=== PATIENT | male | born 1980 | race Caucasian/White ===

== ENCOUNTER 2024-03-26 13:39 | Emergency (ER) | payer OTHER, SELFPAY ==
[2024-03-26 14:04] VITALS: BP 128/79; PULSE 58; RESP 14; TEMP 36.4; O2SAT 99; BMI 21.2
--- NOTE | 2024-03-26 14:29 | DI.US.S_ITS ---
PROCEDURE: US ABDOMEN LIMITED INDICATIONS: RLQ pain TECHNIQUE: Real-time focused scanning was performed of the abdomen with attention to the appendix, with image documentation. COMPARISON: None. FINDINGS: Appendix visualization: There is a blind-ending small tubular structure within the right lower quadrant which may represent the appendix measuring up to 0.7 cm in diameter. Appendix measurements: 0.7 cm diameter Associated findings: Echogenic fat: Negative. Appendiceal compressibility: Not applicable. Appendicoliths: Positive. Nearby free fluid: Negative. Lymphadenopathy: Negative. IMPRESSION: Small appendicoliths without significant appendiceal dilatation or secondary signs to suggest appendicitis. The appendix measures 0.7 cm diameter. Dictated by: Sunny Jimenez M.D. on 03/26/2024 at 15:58 Approved by: Sunny Jimenez M.D. on 03/26/2024 at 16:02
--- NOTE | 2024-03-26 14:48 | EKG_ITS ---
[address] [address] Test Date: 2024-03-26 Pat Name: Carlos Hammond Department: 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
[2024-03-26 14:55] LABS: Add Manual Diff / Slide Review NO; Basophils Absolute Auto 100 /uL (0-100); Basophils Percent Auto 1.3 % (0-2); Eosinophils Absolute Auto 200 /uL (0-450); Eosinophils Percent Auto 2.3 % (2-4); Hematocrit 43.7 % (41-53); Hemoglobin 14.7 g/dL (13.5-17.5); Lymphocytes Absolute Auto 2500 /uL (1100-4500); Lymphocytes Percent Auto 29.7 % (25-40); Mean Corpuscular HGB Conc 33.6 % (30-36); Mean Corpuscular Hemoglobin 30.9 PG (26-34); Mean Corpuscular Volume 92.1 fL (80-100); Monocytes Absolute Auto 800 /uL (0-900); Monocytes Percent Auto 9.6 % (3-14); Neutrophils Absolute Auto 4700 /uL (1500-7000); Neutrophils Percent Auto 57.1 % (50-75); Platelet Count 233 X10^3/uL (150-400); Red Blood Cell Count 4.75 X10^6/uL (4.5-5.9); Red Cell Distribution Width 13.7 % (11.6-14.8); White Blood Cell Count 8.3 X10^3/uL (4.5-11.0)
[2024-03-26 15:08] LABS: Alanine Aminotransferase 39 IU/L (<50); Albumin 4.5 g/dL (3.5-5.0); Albumin Globulin Ratio 1.7 (1.0-2.8); Alkaline Phosphatase 56 U/L (38-126); Aspartate Aminotransferase 35 IU/L (17-59); Bilirubin Total 0.7 mg/dL (0.2-1.3); Blood Urea Nitrogen 15 mg/dL (9-20); Calcium 9.5 mg/dL (8.4-10.2); Carbon Dioxide 28 mmol/L (22-32); Chloride 105 mmol/L (98-107); Estimated Glomerular Filt Rate > 60 mL/min (>60); Globulin 2.7 g/dL (1.7-4.1); Glucose 100 mg/dL (70-100); HEMOLYSIS < 15 (0-50); Lactate (Lactic Acid) 0.7 mmol/L (0.7-2.1); Lipase 59 U/L (23-300); Potassium 4.4 mmol/L (3.4-5.1); Sodium 138 mmol/L (137-145); Total Protein 7.2 g/dL (6.3-8.2)
[2024-03-26 16:05] LABS: Urine Volume 10mL (spun)
[2024-03-26 16:06] LABS: Bacteria Urine None Seen; Culture Indicated Urine Cult Not Indicated; Mucus Urine 2+ (Negative); RBC Urine None Seen (0-5/HPF); Squamous Epithelial Cell Urine 1-5 /HPF (0-5/HPF); WBC Urine 1-5/HPF (0-5/HPF)
[2024-03-26 16:10] LABS: Procalcitonin 0.032 ng/mL (<0.5)
--- NOTE | 2024-03-26 16:56 | DI.CT.S_ITS ---
PROCEDURE: CT ABDOMEN PELVIS W CON INDICATIONS: RLQ pain TECHNIQUE: After the administration of intravenous contrast, axial sections acquired from the lung bases to the pubic symphysis. Coronal and sagittal reformats were performed. For radiation dose reduction, the following was used: automated exposure control, adjustment of mA and/or kV according to patient size. COMPARISON: None. FINDINGS: Image quality: Diagnostic. Lower Chest: No significant findings. ABDOMEN: Liver: No solid mass. Gallbladder: No radiopaque gallstones or wall thickening. Biliary ducts: No biliary dilation. Pancreas: No ductal dilation. Spleen: Size is within normal limits. Adrenal Glands: No adrenal nodules. Kidneys and Ureters: No hydronephrosis. No solid mass. No complex renal cystic lesion which requires follow up. Stomach and Bowel: Normal colonic caliber, without significant wall thickening. The appendix is at the upper limits of normal in size measuring up to 7 millimeters. Fluid and gas is seen within the appendix. There does appear to be mild inflammation adjacent to the tip of the appendix (2/118). Peritoneum: No abnormal intraperitoneal fluid. No free air. Ventral Wall: No significant ventral hernia. Abdominal Nodes: No retroperitoneal or mesenteric adenopathy by size criteria. Vessels: Aorta and inferior vena cava are normal in size. PELVIS: Pelvic Organs: Unremarkable. Bladder: No bladder wall thickening, accounting for underdistention. Pelvic Nodes: No enlarged lymph nodes. Miscellaneous: No inguinal hernias are seen. Bones: No aggressive osseous abnormality. Focal degenerative changes at L5-S1 with grade 1 anterolisthesis and bilateral pars interarticularis defects. IMPRESSION: Appendix is at the upper limits of normal in size measuring 7 millimeters containing fluid and gas. There does appear to be mild inflammation adjacent to the tip of the appendix. Early or developing tip appendicitis is not excluded. Dictated by: Edd Dumont M.D. on 03/26/2024 at 17:31 Approved by: Edd Dumont M.D. on 03/26/2024 at 17:36
[2024-03-26 18:32] VITALS: BP 145/78; PULSE 85; RESP 16; TEMP 36.7; O2SAT 99
--- NOTE | 2024-03-26 18:34 | ED_ITS ---
HPI - Abdominal Pain General Chief Complaint: Abdominal Pain Stated Complaint: r/o appendicitis, sent by [facility] Time Seen by Provider: 03/26/24 15:09 Source: patient Mode of arrival: Ambulatory History of Present Illness HPI narrative: 43-year-old male with no reported past medical history presents with 4 days of right-sided abdominal pain. Patient states that he had an episode similar to this 1 month ago, but it resolved after a day or so. When his symptoms returned and persisted he became worried that something with his appendix may be wrong. He initially presented to the walk-in clinic, however they referred him to the ER for evaluation. Patient denies fevers, chills, nausea, vomiting, changes in bowel habits. Related Data Previous Rx's Medication Instructions Recorded amoxicillin 875 mg-potassium 1 tab PO Q12H #20 tabs 03/26/24 clavulanate 125 mg tablet Allergies Allergy/AdvReac Type Severity Reaction Status Date / Time No Known Drug Allergies Allergy Verified 03/26/24 18:50 Exam Initial Vital Signs Initial Vital Signs: Vital Signs Temperature 97.6 F 03/26/24 14:04 Pulse Rate 58 L 03/26/24 14:04 Respiratory Rate 14 03/26/24 14:04 Blood Pressure 128/79 03/26/24 14:04 Pulse Oximetry 99 03/26/24 14:04 Oxygen Delivery Method Room Air 03/26/24 14:04 Const: Awake, alert, no acute distress, nontoxic appearing Cardiac: regular rate, regular rhythm RESP: unlabored, speaking in complete sentences without dyspnea GI: Soft, nontender, nondistended, no rebound, no guarding Skin: Warm, Dry, intact, no rashes Neuro: AO x3, CN II-XII grossly intact, moves all extremities Course Orders Ordered: ED Orders 03/26/24 15:41 Urine Microscopic Stat 03/26/24 16:56 CT abdomen pelvis w con Stat Discontinued Medications Piperacillin Sod/Tazobactam (Sod 4.5 gm/ Sodium Chloride) 100 mls @ 200 mls/hr IV NOW ONE Stop: 03/26/24 18:42 Last Infusion: 03/26/24 19:31 Dose: Infused Documented By: Admin: 03/26/24 18:48 Dose: 200 mls/hr Documented By: Ondansetron HCl (Ondansetron 4 Mg/2 Ml Inj) 4 mg IV NOW PRN PRN Reason: Nausea And Vomiting Ondansetron HCl (Ondansetron 4 Mg Odt) 4 mg PO NOW PRN PRN Reason: Nausea And Vomiting Vital Signs Vital signs: Vital Signs - 8 hr 03/26/24 18:32 03/26/24 19:00 Temperature 98.0 F 98.6 F Pulse Rate 85 66 Respiratory Rate 16 16 Blood Pressure 145/78 H 108/78 Pulse Oximetry 99 99 Oxygen Delivery Method Room Air Room Air MDM - Abdominal Pain Differential Diagnosis Differential diagnosis: Likely abdominal pain, acute appendicitis and calculus of kidney Lab Data 03/26/24 14:40 03/26/24 14:40 Labs: Lab Results 03/26/24 03/26/24 Range/Units 14:40 15:41 WBC 8.3 (4.5-11.0) X10^3/uL RBC 4.75 (4.5-5.9) X10^6/uL Hgb 14.7 (13.5-17.5) g/dL Hct 43.7 (41-53) % MCV 92.1 (80-100) fL MCH 30.9 (26-34) PG MCHC 33.6 (30-36) % RDW 13.7 (11.6-14.8) % Plt Count 233 (150-400) X10^3/uL Neut % (Auto) 57.1 (50-75) % Lymph % (Auto) 29.7 (25-40) % [place] % (Auto) 9.6 (3-14) % Eos % (Auto) 2.3 (2-4) % Baso % (Auto) 1.3 (0-2) % Neut # (Auto) 4700 (6419-4494) /uL Lymph # (Auto) 2500 (8161-7114) /uL [place] # (Auto) 800 (0-900) /uL Eos # (Auto) 200 (0-450) /uL Baso # (Auto) 100 (0-100) /uL Sodium 138 (137-145) mmol/L Potassium 4.4 (3.4-5.1) mmol/L Chloride 105 (98-107) mmol/L Carbon Dioxide 28 (22-32) mmol/L BUN 15 (9-20) mg/dL Creatinine 1.00 (0.66-1.25) mg/dL Estimated GFR > 60 (>60) mL/min BUN/Creatinine Ratio 15.0 (6-22) Glucose 100 (70-100) mg/dL Lactate 0.7 (0.7-2.1) mmol/L Calcium 9.5 (8.4-10.2) mg/dL Total Bilirubin 0.7 (0.2-1.3) mg/dL AST 35 (17-59) IU/L ALT 39 (<50) IU/L Alkaline Phosphatase 56 (38-126) U/L Total Protein 7.2 (6.3-8.2) g/dL Albumin 4.5 (3.5-5.0) g/dL Globulin 2.7 (1.7-4.1) g/dL Albumin/Globulin Ratio 1.7 (1.0-2.8) Lipase 59 (23-300) U/L Procalcitonin 0.032 (<0.5) ng/mL Urine RBC None seen (0-5/HPF) Urine WBC 1-5/hpf (0-5/HPF) Ur Squamous Epith Cells 1-5 /hpf (0-5/HPF) Urine Bacteria None seen (None) Urine Mucus 2+ H (Negative) Ur Culture Indicated? Cult not indicated Vol Urine Centrifuged 10ml (spun) Point of care testing: Urine Dip Bedside Urine Glucose Negative Bedside Urine Bilirubin - Negative Bedside Urine Ketone - Negative Urine Specific [place] 1.030 Bedside Urine Occult Blood - Negative Bedside Urine pH 5.5 Bedside Urine Protein +/- 15 Bedside Urine Urobilinogen - Negative Bedside Urine Nitrite - Negative Bedside Urine Leukocytes - Negative Esterase Imaging Data CT scan - abdomen/pelvis: Radiologist's Impression: PROCEDURE: CT ABDOMEN PELVIS W CON INDICATIONS: RLQ pain TECHNIQUE: After the administration of intravenous contrast, axial sections acquired from the lung bases to the pubic symphysis. Coronal and sagittal reformats were performed. For radiation dose reduction, the following was used: automated exposure control, adjustment of mA and/or kV according to patient size. COMPARISON: None. FINDINGS: Image quality: Diagnostic. Lower Chest: No significant findings. ABDOMEN: Liver: No solid mass. Gallbladder: No radiopaque gallstones or wall thickening. Biliary ducts: No biliary dilation. Pancreas: No ductal dilation. Spleen: Size is within normal limits. Adrenal Glands: No adrenal nodules. Kidneys and Ureters: No hydronephrosis. No solid mass. No complex renal cystic lesion which requires follow up. Stomach and Bowel: Normal colonic caliber, without significant wall thickening. The appendix is at the upper limits of normal in size measuring up to 7 millimeters. Fluid and gas is seen within the appendix. There does appear to be mild inflammation adjacent to the tip of the appendix (2/118). Peritoneum: No abnormal intraperitoneal fluid. No free air. Ventral Wall: No significant ventral hernia. Abdominal Nodes: No retroperitoneal or mesenteric adenopathy by size criteria. Vessels: Aorta and inferior vena cava are normal in size. PELVIS: Pelvic Organs: Unremarkable. Bladder: No bladder wall thickening, accounting for underdistention. Pelvic Nodes: No enlarged lymph nodes. Miscellaneous: No inguinal hernias are seen. Bones: No aggressive osseous abnormality. Focal degenerative changes at L5- S1 with grade 1 anterolisthesis and bilateral pars interarticularis defects. IMPRESSION: Appendix is at the upper limits of normal in size measuring 7 millimeters containing fluid and gas. There does appear to be mild inflammation adjacent to the tip of the appendix. Early or developing tip appendicitis is not excluded. Dictated by: Edd Dumont M.D. on 03/26/2024 at 17:31 Approved by: Edd Dumont M.D. on 03/26/2024 at 17:36 [facility] Narrative Medical decision making narrative: Well-appearing patient with 4 days of right-sided lower abdominal pain. On exam patient's abdomen is soft, there was no reproducible tenderness to light or deep palpation. Laboratory work obtained upon patient's arrival shows no leukocytosis, normal electrolytes, normal lactic acid, urinalysis unremarkable. CT of the abdomen and pelvis shows that the appendix is at the upper limits of normal. There is some fluid and gas with mild inflammation. Case discussed with on-call general surgeon Dr. Oglesby, who stated that patient could be treated conservatively with antibiotics, however there was a 20% chance of bounced back and he would ultimately need his appendix out. If patient is adamant about having his appendix removed he could be admitted. If patient wanted to try outpatient then he recommended a dose of Zosyn and 10 days of twice daily Augmentin. Laboratory work, CT findings, General surgery recommendations. Patient stated that he would like to try outpatient therapy at this time, understanding that there is a risk that he was appendix would not be completely treated and he would have to come back. Zosyn ordered, prescription for Augmentin sent to pharmacy of choice. ED return precautions discussed at bedside. Patient expressed understanding of the plan and is in agreement at this time. All questions answered at the time of discharge. Discharge Plan Departure Patient Disposition: Home Clinical Impression: Acute appendicitis Instructions: DI for Appendicitis -- Adult Activity Restrictions/Additional Instructions: Your laboratory work today is normal. Your CT shows possible inflammatory changes around the appendix, which may indicate appendicitis. After discussion with you and the general surgeon we are going to try to treat this conservatively with antibiotics. Finish all of your antibiotics as prescribed even if you feel better. If you notice significant worsening in your pain, fever, vomiting, or any other concerning symptoms please come back to the ER for repeat evaluation Prescriptions: New amoxicillin-pot clavulanate 875-125 mg tablet 1 tab PO Q12H Qty: 20 0RF Referrals: Guy Oglesby MD [Physician] - Miscellaneous,MD Roshan [Primary Care Provider] - Stand Alone Forms: Patient Portal/API/Survey, Work Release Note
[2024-03-26] MEDS: PIPERACILLIN/TAZO 4.5 GM in SODIUM CHLORIDE 0.9% 100 ML IV (18:48)
[2024-03-26 19:00] VITALS: BP 108/78; PULSE 66; RESP 16; TEMP 37; O2SAT 99
== END 2024-03-26 19:32 | disposition home or self-care (01) ==
PROVIDERS: Emergency Medicine; Emergency Provider Emergency Medicine
DX: K35.80 Unspecified acute appendicitis (principal)
CPT/HCPCS: 36415; 74177; 76705; 80053; 81003; 81015; 83605; 83690; 84145; 85025; 87040; 93005; 96365; 99284; 99285; J2543; Q9967

== ENCOUNTER 2024-04-06 19:26 | Emergency (ER) | payer OTHER, SELFPAY ==
[2024-04-06] VITALS (9 sets, daily range): BP systolic 92–119; BP diastolic 56–68; PULSE 49–69; RESP 14–16; TEMP 36.9; O2SAT 95–98; BMI 22.0
[2024-04-06 19:48] LABS: Add Manual Diff / Slide Review NO; Basophils Absolute Auto 100 /uL (0-100); Basophils Percent Auto 0.5 % (0-2); Eosinophils Absolute Auto 400 /uL (0-450); Eosinophils Percent Auto 3.7 % (2-4); Hematocrit 43.7 % (41-53); Hemoglobin 14.9 g/dL (13.5-17.5); Lymphocytes Absolute Auto 2700 /uL (1100-4500); Lymphocytes Percent Auto 25.3 % (25-40); Mean Corpuscular HGB Conc 34.1 % (30-36); Monocytes Absolute Auto 700 /uL (0-900); Monocytes Percent Auto 6.8 % (3-14); Neutrophils Absolute Auto 6700 /uL (1500-7000); Neutrophils Percent Auto 63.7 % (50-75); Platelet Count 236 X10^3/uL (150-400); Red Cell Distribution Width 13.6 % (11.6-14.8); White Blood Cell Count 10.5 X10^3/uL (4.5-11.0)
[2024-04-06 19:59] LABS: Alanine Aminotransferase 19 IU/L (<50); Albumin 4.3 g/dL (3.5-5.0); Albumin Globulin Ratio 1.5 (1.0-2.8); Alkaline Phosphatase 65 U/L (38-126); Aspartate Aminotransferase 24 IU/L (17-59); Blood Urea Nitrogen 13 mg/dL (9-20); Calcium 9.4 mg/dL (8.4-10.2); Carbon Dioxide 23 mmol/L (22-32); Chloride 107 mmol/L (98-107); Estimated Glomerular Filt Rate > 60 mL/min (>60); Globulin 2.8 g/dL (1.7-4.1); Glucose 112 mg/dL (70-100); HEMOLYSIS < 15 (0-50); Lipase 53 U/L (23-300); Potassium 3.5 mmol/L (3.4-5.1); Sodium 137 mmol/L (137-145); Total Protein 7.1 g/dL (6.3-8.2)
--- NOTE | 2024-04-06 20:47 | ED_ITS ---
HPI - Abdominal Pain General Chief Complaint: Abdominal Pain Stated Complaint: appendicitis Time Seen by Provider: 04/06/24 20:45 Source: patient, RN notes reviewed and old records reviewed Mode of arrival: Ambulatory Limitations: no limitations History of Present Illness HPI narrative: 43-year-old male found to have appendicitis on 03/26/2024 patient was treated conservatively with antibiotics received Augmentin for 10 days. Patient returns with recurrent pain 2 or 3 times today that lasted about an hour to 2 hours. Wrapped up a little bit throughout the day but is currently not present. No fevers. No new back or flank pain. No nausea or vomiting. Having normal bowel movements. No issues with urination. States he has a little bit of pain in the for several days but that resolved. Patient did take his 10 day course of antibiotics. Completed them yesterday. Denies any other daily medications. No known drug allergies. States he is currently asymptomatic. Related Data Previous Rx's Medication Instructions Recorded amoxicillin 875 mg-potassium 1 tab PO Q12H #20 tabs 03/26/24 clavulanate 125 mg tablet Allergies Allergy/AdvReac Type Severity Reaction Status Date / Time No Known Drug Allergies Allergy Verified 04/06/24 19:33 Review of Systems Review of Systems ROS Unobtainable: All systems reviewed & are unremarkable except as noted in HPI and below Patient History Social History Smoking Status: Unknown if ever smoked Smoking Status: Unknown if ever smoked Exam Narrative Exam Narrative: GENERAL: Alert and oriented x three, male in mild distress HEENT: Head normocephalic, atraumatic, EOMI, pupils reactive, face symmetric, moist mucous membranes NECK: Supple, full range of motion CARDIOVASCULAR: Regular rate and rhythm without murmurs, rubs or gallops. RESPIRATORY: Breath sounds equal bilaterally, no wheezes rales or rhonchi. ABDOMEN: Soft, very mild right mid quadrant tenderness. No right lower quadrant tenderness. Normoactive bowel sounds all 4 quadrants. No guarding or rebound, rigidity, no mass : No CVA tenderness EXTREMITIES: Normal range of motion, no clubbing or edema. Neurovascularly intact NEUROLOGICAL: Cranial nerves II through XII grossly intact. Moving all extremities SKIN: Warm, dry, no petechiae, no rashes or lesions. Initial Vital Signs Initial Vital Signs: Vital Signs Temperature 98.4 F 04/06/24 19:28 Pulse Rate 69 04/06/24 19:28 Respiratory Rate 14 04/06/24 19:28 Blood Pressure 119/68 04/06/24 19:28 Pulse Oximetry 98 04/06/24 19:28 Oxygen Delivery Method Room Air 04/06/24 19:28 Course Orders Ordered: ED Orders 04/06/24 19:41 Complete Blood Count AUTO DIFF Stat Comprehensive Metabolic Panel Stat Lipase Stat 04/06/24 20:52 CT abdomen pelvis w con Stat Ondansetron HCl (Ondansetron 4 Mg/2 Ml Inj) 4 mg IV NOW PRN PRN Reason: Nausea And Vomiting Ondansetron HCl (Ondansetron 4 Mg Odt) 4 mg PO NOW PRN PRN Reason: Nausea And Vomiting Vital Signs Vital signs: Vital Signs - 8 hr 04/06/24 19:28 04/06/24 20:26 04/06/24 20:30 Temperature 98.4 F Pulse Rate 69 61 59 L Respiratory Rate 14 Blood Pressure 119/68 99/62 93/59 L Pulse Oximetry 98 97 95 Oxygen Delivery Method Room Air 04/06/24 20:45 04/06/24 21:00 04/06/24 22:30 Temperature Pulse Rate 60 58 L 50 L Respiratory Rate 16 Blood Pressure 92/61 Pulse Oximetry 97 95 95 Oxygen Delivery Method Room Air 04/06/24 22:35 04/06/24 22:35 04/06/24 23:00 Temperature Pulse Rate 49 L 51 L Respiratory Rate Blood Pressure 98/63 Pulse Oximetry 96 95 Oxygen Delivery Method Room Air 04/06/24 23:00 Temperature Pulse Rate Respiratory Rate Blood Pressure 98/56 L Pulse Oximetry Oxygen Delivery Method MDM - Abdominal Pain Lab Data 04/06/24 19:41 04/06/24 19:41 Labs: Lab Results 04/06/24 Range/Units 19:41 WBC 10.5 (4.5-11.0) X10^3/uL RBC 4.80 (4.5-5.9) X10^6/uL Hgb 14.9 (13.5-17.5) g/dL Hct 43.7 (41-53) % MCV 91.0 (80-100) fL MCH 31.0 (26-34) PG MCHC 34.1 (30-36) % RDW 13.6 (11.6-14.8) % Plt Count 236 (150-400) X10^3/uL Neut % (Auto) 63.7 (50-75) % Lymph % (Auto) 25.3 (25-40) % [place] % (Auto) 6.8 (3-14) % Eos % (Auto) 3.7 (2-4) % Baso % (Auto) 0.5 (0-2) % Neut # (Auto) 6700 (8043-9609) /uL Lymph # (Auto) 2700 (9253-6830) /uL [place] # (Auto) 700 (0-900) /uL Eos # (Auto) 400 (0-450) /uL Baso # (Auto) 100 (0-100) /uL Sodium 137 (137-145) mmol/L Potassium 3.5 (3.4-5.1) mmol/L Chloride 107 (98-107) mmol/L Carbon Dioxide 23 (22-32) mmol/L BUN 13 (9-20) mg/dL Creatinine 0.93 (0.66-1.25) mg/dL Estimated GFR > 60 (>60) mL/min BUN/Creatinine Ratio 14.0 (6-22) Glucose 112 H (70-100) mg/dL Calcium 9.4 (8.4-10.2) mg/dL Total Bilirubin 1.0 (0.2-1.3) mg/dL AST 24 (17-59) IU/L ALT 19 (<50) IU/L Alkaline Phosphatase 65 (38-126) U/L Total Protein 7.1 (6.3-8.2) g/dL Albumin 4.3 (3.5-5.0) g/dL Globulin 2.8 (1.7-4.1) g/dL Albumin/Globulin Ratio 1.5 (1.0-2.8) Lipase 53 (23-300) U/L Imaging Data CT scan - abdomen/pelvis: Radiologist's Impression: Carlos Hammond??43??M??1980 ? Allergy/Adv: No Known Drug Allergies (More??) Close Abdomen/Pelvis CT (Signed) Marguerite Alegria - 04/06/24 Abdomen/Pelvis CT (Signed) Edd Dumont - 03/26/24 Abdomen Ultrasound (Signed) Sunny Jimenez - 03/26/24 Launch?Image [address] [address] [address] Scan Report Signed Patient: Carlos Hammond MR#: [id number] : 1980 Acct:[id number] Age/Sex: 43 / M Date of Service: 04/06/24 Loc: ED Accession Number: [id number] Procedure: CT abdomen pelvis w con Ordering Provider: Megan Sanders D.O. PROCEDURE: CT ABDOMEN PELVIS W CON INDICATIONS: RLQ pain, tx for appendicitis w/ augmenting, CT 03/26/24 TECHNIQUE: After the administration of intravenous contrast, axial sections acquired from the lung bases to the pubic symphysis. Coronal and sagittal reformats were performed. For radiation dose reduction, the following was used: automated exposure control, adjustment of mA and/or kV according to patient size. COMPARISON: [facility], CT, CT ABDOMEN PELVIS W CON, 03/26/2024, 17:00. FINDINGS: Image quality: Diagnostic. Lower Chest: No significant findings. ABDOMEN: Liver: No solid mass. Gallbladder: No radiopaque gallstones or wall thickening. Biliary ducts: No biliary dilation. Pancreas: No ductal dilation. Spleen: Size is within normal limits. Adrenal Glands: No adrenal nodules. Kidneys and Ureters: No hydronephrosis. No solid mass. No complex renal cystic lesion which requires follow up. Stomach and Bowel: Normal colonic caliber, without significant wall thickening. The appendix again measures up to 7 mm in caliber, which is the upper limits of normal in size. There is no wall thickening or surrounding inflammatory changes. The appendix is filled with fluid gas and partial contrast. Peritoneum: No abnormal intraperitoneal fluid. No free air. Ventral Wall: No significant ventral hernia. Abdominal Nodes: No retroperitoneal or mesenteric adenopathy by size criteria. Vessels: Aorta and inferior vena cava are normal in size. PELVIS: Pelvic Organs: Unremarkable. Bladder: No bladder wall thickening, accounting for underdistention. Pelvic Nodes: No enlarged lymph nodes. Miscellaneous: No inguinal hernias are seen. Bones: No aggressive osseous abnormality. Focal degenerative changes at L5- S1 with grade 1 anterolisthesis and bilateral pars defects. IMPRESSION: Contrast and gas filled appendix measuring up to 7 mm in caliber, which is the upper limits of normal in size. Previously described mild inflammation at the tip of the appendix is not visualized on current exam. No significant surrounding inflammatory changes to suggest acute appendicitis. No other acute findings in the abdomen or pelvis. Approved by: Marguerite Alegria M.D.,Ph.D. on 04/06/2024 at 22:44 MDM Narrative Medical decision making narrative: 43-year-old male with CT imaging on 03/26/2024 and exam consistent with potential or very early appendicitis. Patient was treated with Augmentin for 10 days has had recurrence of pain today although he describes it as being sort of intermittent and currently not present. Discussed with patient we will obtain CT imaging, has a very mild tenderness more in the mid upper right abdomen he isn't really tender in the right lower quadrant. Labs show white count of 10 hemoglobin of 14.9 platelets of 236. Electrolytes are normal, BUN 13 creatinine 0.93 glucose is 112 LFTs are negative lipase is 53. CT imaging contrast and gas-filled appendix measuring up to 7 mm in caliber upper limits of normal in size previously described mild inflammation of the tip is not visualized on current exam no surrounding inflammation changes to suggest acute appendicitis no other acute findings in the abdomen or pelvis. Patient's blood pressure has been a little bit lower in the 90s but he has otherwise been well-appearing without any other complaints he notes he has not had anything to eat or drink all day. Was noted to have a systolic of 108 on his last visit here on the as well. Spoke with Dr. Addison reviewed patient's findings would have patient follow up in the office if persistent discomfort over the next several days but at this time would be comfortable with discharge home. Reviewed findings with the patient he feels comfortable with the plan he currently continues to be asymptomatic noted his blood pressure but he states he has not had anything solid today only had some liquids earlier today and nothing recently. He denies any other symptoms no abdominal pain currently and feels comfortable returning home hydrating on his own. Discussed return precautions all questions answered. Patient feels comfortable with the plan Discharge Plan Departure Patient Disposition: Home Clinical Impression: Abdominal pain Activity Restrictions/Additional Instructions: Your imaging today shows your appendix is still slightly enlarged at 7 mm the same size it was on 03/26/2024 the inflammation in that area has resolved. I did talk with General surgery today if you have persistent but mild pain over the next several days please follow up with Dr. Addison office. Contact information is included below. You can take ibuprofen and/or acetaminophen as needed for pain. Please return if you develop fevers, if you are pain is rapidly worsening, becoming intractable, any vomiting, black or bloody stools or difficulty with urination or other new or concerning changes. Prescriptions: No Action amoxicillin-pot clavulanate 875-125 mg tablet 1 tab PO Q12H Qty: 20 0RF Referrals: Jerod Addison MD [Physician] - Miscellaneous,MD Roshan [Primary Care Provider] - Stand Alone Forms: Patient Portal/API/Survey
--- NOTE | 2024-04-06 20:52 | DI.CT.S_ITS ---
PROCEDURE: CT ABDOMEN PELVIS W CON INDICATIONS: RLQ pain, tx for appendicitis w/ augmenting, CT 03/26/24 TECHNIQUE: After the administration of intravenous contrast, axial sections acquired from the lung bases to the pubic symphysis. Coronal and sagittal reformats were performed. For radiation dose reduction, the following was used: automated exposure control, adjustment of mA and/or kV according to patient size. COMPARISON: [facility], CT, CT ABDOMEN PELVIS W CON, 03/26/2024, 17:00. FINDINGS: Image quality: Diagnostic. Lower Chest: No significant findings. ABDOMEN: Liver: No solid mass. Gallbladder: No radiopaque gallstones or wall thickening. Biliary ducts: No biliary dilation. Pancreas: No ductal dilation. Spleen: Size is within normal limits. Adrenal Glands: No adrenal nodules. Kidneys and Ureters: No hydronephrosis. No solid mass. No complex renal cystic lesion which requires follow up. Stomach and Bowel: Normal colonic caliber, without significant wall thickening. The appendix again measures up to 7 mm in caliber, which is the upper limits of normal in size. There is no wall thickening or surrounding inflammatory changes. The appendix is filled with fluid gas and partial contrast. Peritoneum: No abnormal intraperitoneal fluid. No free air. Ventral Wall: No significant ventral hernia. Abdominal Nodes: No retroperitoneal or mesenteric adenopathy by size criteria. Vessels: Aorta and inferior vena cava are normal in size. PELVIS: Pelvic Organs: Unremarkable. Bladder: No bladder wall thickening, accounting for underdistention. Pelvic Nodes: No enlarged lymph nodes. Miscellaneous: No inguinal hernias are seen. Bones: No aggressive osseous abnormality. Focal degenerative changes at L5-S1 with grade 1 anterolisthesis and bilateral pars defects. IMPRESSION: Contrast and gas filled appendix measuring up to 7 mm in caliber, which is the upper limits of normal in size. Previously described mild inflammation at the tip of the appendix is not visualized on current exam. No significant surrounding inflammatory changes to suggest acute appendicitis. No other acute findings in the abdomen or pelvis. Approved by: Marguerite Alegria M.D.,Ph.D. on 04/06/2024 at 22:44
--- NOTE | 2024-04-06 23:03 | PC.NURSE ---
Provider Marilyn is aware of patient's blood pressures. She states OK to drink water at this time. Water provided for patient. Encouraged to call if he becomes nauseous or any changes. Call light within reach.
== END 2024-04-06 23:21 | disposition home or self-care (01) ==
PROVIDERS: Emergency Provider Emergency Medicine
DX: R10.11 Right upper quadrant pain (principal)
CPT/HCPCS: 36415; 74177; 80053; 83690; 85025; 99283; 99284; Q9967

== ENCOUNTER 2024-04-30 06:27 | Day surgery (SDC) | payer OTHER, SELFPAY ==
[2024-04-25 07:16] VITALS: BMI 22.0
[2024-04-30] VITALS (8 sets, daily range): BP systolic 92–125; BP diastolic 48–78; PULSE 59–71; RESP 11–25; TEMP 36.4–36.9; O2SAT 99–100; BMI 22.0
--- NOTE | 2024-04-30 | PATH_ITS ---
[facility] Accession Number: [id number] No. of containers..01 Tissue . 01 Material submitted: . appendix - APPENDIX . 01 Diagnosis: APPENDIX, APPENDECTOMY: Mild chronic appendicitis with reactive changes. Negative for acute appendicitis, dysplasia, or malignancy. [facility] 05/05/2024 1109 Local . 01 Electronically signed: . Nubia Holley MD, Pathologist NPI- [id number] . 01 Gross description: . Specimen is received in formalin labeled with two patient identifiers and appendix, and consists of a 5.5 x 0.8 x 0.7 cm vermiform appendix with an attached 3.5 x 1.1 x 0.8 cm mesoappendix. The serosal surface of the appendix is smooth, white, glistening, but otherwise unremarkable. The stapled resection margin is inked blue. The specimen is serially sectioned to show an unremarkable intact white appendiceal wall averaging 0.1 cm in thickness. There is a 0.3 cm lumen filled with gentile-brown fecal material. The attached mesoappendix is yellow, lobulated, and otherwise unremarkable. Nutrition Services Assistant sections are submitted in cassette A1 (tip of appendix bisected, appendiceal resection margin, and retail wireless sales representative sections of appendix). ([id number]) /ALESIA 05/02/20247 Local . 01 Pathologist provided ICD-10: K36 . 01 CPT . 043240 Specimen Comment: A courtesy copy of this report has been sent to [facility] Pathology Performed at: [address] [facility], [place], [place] [id number] MD Sunny Warren MD Phone: [phone]
[2024-04-30] MEDS: LACTATED RINGERS 1,000 ML 42 ML IV (07:01)
--- NOTE | 2024-04-30 07:25 | SUR.OPER ---
Supine on padded OR bed, head on pillow, arms secured on padded arm boards at <90 degrees abduction, legs uncrossed, safety belt at thigh, tape over blanket over lower legs.
[2024-04-30] MEDS: ACETAMINOPHEN IV 1,000 MG/100 ML VIAL 400 MG IV (07:42)
--- NOTE | 2024-04-30 07:45 | PM.PREOP ---
Pre-operative Note Interval Note History & Physical reviewed/Exam performed by Physician: Yes Changes to H&P: No
[2024-04-30] MEDS: CEFAZOLIN 2 GM/100 ML PREMIX 100 ML IV (07:50)
--- NOTE | 2024-04-30 08:19 | P.OP_ITS ---
Operative Date/Time/Diagnoses Date of procedure: 04/30/24 Time of procedure: 08:20 Pre-op diagnosis: Appendicitis without perforation or peritonitis Post-op diagnosis: same Procedure & Clinicians Procedure: Laparoscopic appendectomy Same procedure as scheduled: Yes Indications: Chronic appendicitis with right lower quadrant pain Surgeon: Guy Oglesby Click Yes if Unassisted: Yes Anesthesia Type: General Operative Notes Findings: Enlarged but not perforated or gangrenous appendix Closure Type: primary Specimen(s): other (Appendix) Estimated Blood Loss (mL): 5 Procedure in detail: Consent was obtained. Patient was brought to the operating room suite. Time- out was performed. General anesthesia was induced. Patient was placed in the supine position with the left arm tucked. The abdomen was prepped and draped. Total of 30 mL of 0.5% Marcaine were used to infiltrate all trocar sites. 5 mm optical trocar was placed in the left upper quadrant. Pneumoperitoneum was achieved. The abdomen was inspected with the only abnormality being appendix being enlarged and stuck to the anterior abdominal wall and a very small left inguinal hernia not containing fat or bowel. 12 mm trocar was placed through the umbilicus. 5 mm trocar placed in the suprapubic region. The appendix was grasped and a window in the mesoappendix was made with a [place]. Forty-five mm White load was fired across the mesoappendix. 45 mm blue load was fired across the cecum. Bovie electrocautery was used to control a small vessel on the staple line of the mesoappendix. The appendix was placed in an Endo-Catch bag and brought out through the umbilicus. There was no spillage. The 12 mm trocar was closed with an 0 Vicryl on a Viraj-Cindy suture Passer. Pneumoperitoneum was relieved. Skin was closed 4-0 Monocryl and Dermabond. Complications: none Post-operative Condition: stable Disposition: PACU
[2024-04-30] MEDS: HYDROMORPHONE 1 MG INJ IV ×2 (08:34→08:40)
[2024-04-30] MEDS: OXYCODONE IR 5 MG TABLET PO (08:44)
== END 2024-04-30 09:15 | disposition home or self-care (01) ==
PROVIDERS: Referring Provider Surgery; Visit Provider Surgery
PROC: 0DTJ4ZZ Resection of Appendix, Percutaneous Endoscopic Approach (ICD-10-PCS; CPT 44970; principal; 2024-04-30 07:45)
DX: K36 Other appendicitis (principal); F12.90 Cannabis use, unspecified, uncomplicated
CPT/HCPCS: 44970; J0134; J0690; J1100; J1171; J2250; J2310; J2405; J2704; J3010; J3490

== ENCOUNTER → 2025-04-08 08:54 | Outpatient (CLI) | payer OTHER, SELFPAY ==
--- NOTE | 2025-04-08 09:11 | DI.CT.S_ITS ---
PROCEDURE: CT ABDOMEN PELVIS WO CON INDICATIONS: ongoing abd pain post appendectomy TECHNIQUE: CT of the abdomen and pelvis was obtained without intravenous contrast. Coronal and sagittal reformats were performed. For radiation dose reduction, the following was used: automated exposure control, adjustment of mA and/or kV according to patient size. COMPARISON: [facility], CT, CT ABDOMEN PELVIS W CON, 04/06/2024, 20:54. FINDINGS: Image quality: Diagnostic. Lower Chest: No significant findings. ABDOMEN: Liver: No contour-deforming mass. Gallbladder: No radiopaque gallstones or wall thickening. Biliary ducts: No biliary dilation. Pancreas: No peripancreatic inflammation. No ductal dilatation. Spleen: Size is within normal limits. Adrenal Glands: No adrenal nodules. Kidneys and Ureters: No hydronephrosis. No contour-deforming mass. Bilateral ureters are normal course and caliber. Stomach and Bowel: Normal colonic caliber, without significant wall thickening. Postsurgical changes of appendectomy. No evidence for acute inflammatory changes in the right lower quadrant. No abnormal fluid collection seen. No free air. Peritoneum: No abnormal intraperitoneal fluid. No free air. Ventral Wall: There is a fat-containing umbilical hernia without acute inflammation. Abdominal Nodes: No retroperitoneal or mesenteric adenopathy by size criteria. Vessels: Aorta and inferior vena cava are normal in size. PELVIS: Pelvic Organs: Mild prostatomegaly. Bladder: Unremarkable. Pelvic Nodes: No enlarged lymph nodes. Miscellaneous: No inguinal hernias are seen. Bones: No aggressive osseous abnormality. Grade 1 anterolisthesis of L5 on S1 secondary to bilateral L5 pars defects. Moderate spondylitic changes at L5-S1. No acute compression fractures. IMPRESSION: CT abdomen and pelvis without acute abnormalities to explain patient's right lower quadrant abdominal pain status post appendectomy. There are expected postsurgical changes of appendectomy without abnormal fluid collection or acute inflammatory changes. Other chronic/non-acute findings as above. Dictated by: Chalo Baig M.D. on 04/08/2025 at 18:26 Approved by: Chalo Baig M.D. on 04/08/2025 at 18:32
== END ==
PROVIDERS: PCP Family Medicine; Referring Provider Family Medicine; Visit Provider Family Medicine
DX: R10.31 Right lower quadrant pain (principal); G89.29 Other chronic pain; K42.9 Umbilical hernia without obstruction or gangrene; N40.0 Benign prostatic hyperplasia without lower urinary tract symptoms; M43.16 Spondylolisthesis, lumbar region; Z90.49 Acquired absence of other specified parts of digestive tract
CPT/HCPCS: 74176